=== PATIENT | female | born 1980 | race Caucasian/White ===

== ENCOUNTER → 2018-04-20 | Outpatient (CLI) | payer SELFPAY ==
--- NOTE | 2018-04-20 16:41 | Diagnostic Imaging Report ---
PATIENT HISTORY: Lumbago with sciatica, left side. TECHNIQUE: Three views of the lumbar spine. COMPARISON: None. FINDINGS: There are five lumbar-type vertebral bodies. No spondylolisthesis is seen in the lumbar spine. Vertebral body heights are preserved. Disc heights are preserved. There is mild facet arthropathy in the lower lumbar spine. The bilateral sacroiliac joints are patent. IMPRESSION: Mild facet arthropathy in the lumbar spine with no acute osseous abnormality seen. Dictated by: Dictated on workstation # [id number]
== END ==
LOC: RAD FS 15:57
PROVIDERS: ATTEND Physician Assistant
DX: M46.86 Other specified inflammatory spondylopathies, lumbar region (principal)
CPT/HCPCS: 72100